=== PATIENT | female | born 1980 | race Caucasian/White ===

== ENCOUNTER 2017-12-04 05:28 | Inpatient (IN) | payer OTHER ==
[2017-12-04] MEDS ORDERED: ceFOXitin 2 GM IVPREMIX* 2 GM/50 ML BAG IVPB ONE (06:07)
[2017-12-04] MEDS ORDERED: Sodium Citrate/Citric Acid* 15 ML UDC PO ONE (06:07)
--- NOTE | 2017-12-04 06:40 | HP ---
General Information - General Information Maternal Age: 37 Grav: 1 Para: 0 SAB: 0 IEA: 0 Estimated Due Date: 12/13/17 Determined By: LMP Gestational Age in Weeks and Days: 38 Weeks and 5 Days Maternal Blood Type and Rh: O Positive - Results this Serology/RPR Result: Non-Reactive Rubella Result: Non-Immune HBsAg Result: Negative HIV Result: Negative GBS Culture Result: Negative Past Medical History Pertinent Past Medical History: Non-Contributory Past Medical History Comment: Depression/Anxiety--no meds at present Pertinent Past Surgical History: None Pertinent Family History: Non-Contributory - Antepartal Records Antepartal Records: Reviewed, Complicated by: - breech presentation, unsuccessful ECV. Age 37, normal NIPT Review of Systems Constitutional: Comfortable CV Complaint: No Respiratory: Shortness of Breath: No Gastrointestinal: No Nausea/Vomiting Genitourinary: Leaking Fluid Musculoskeletal: Contractions Neurological: No Headache, No Visual Changes Movement: Normal - Comments soft stool this am Exam Allergies/Adverse Reactions: Allergies No Known Allergies Allergy (Verified 12/04/17 06:04) Vital Signs 12/04/17 05:59 Temperature 98.2 F Pulse Rate 70 Respiratory 18 Rate Blood Pressure 142/92 (mmHg) Lab Values - Entire Visit: Laboratory Tests 12/04/17 05:44 Vag Amniotic Fld Detect Positive - Measurements Height: 4 ft 11 in Weight: 108 lb Weight in lbs: 108 Body Mass Index (BMI): 21.8 Pre- Weight: 84 lb Weight Gained This : 24 lbs and 0 ozs - Exam Breast: - - soft, no masses Extremities: No Edema Heart: Normal Rhythm/Heart Sounds HEENT: No Significant Findings Lungs: Clear Bilaterally Reflexes: DTR 2+ Thyroid: No Thyromegaly - Ultrasound/Biophysical Profile Ultrasound Status: Bedside Exam Ultrasound Findings: breech presentation, vtx in RUQ Targeted Exam Findings See L&D Outpatient Visit Provider Note for Findings: N/A Cervical Exam: 1cm Effacement: Thick Station: -1 Presenting Part: Breech Amniotic Fluid Evaluation: Positive ROM Plus EFM Findings - External Monitor Findings Baseline Heart Rate: 125 External Monitor Findings: Accelerations Present, No Pattern of Variable or Late Decelerations, Variability Moderate, Baseline Stable External Monitor Findings Comment: category 1 Contractions: Moderate, 45-90 Seconds Contraction Frequency: 6-7 minutes Assessment/Plan - Reason for Visit Reason for Visit: SROM, breech presentation at 38 w 5 d - Plan Plan: Expedite C/S Delivery - Date/Time of Admission Date of Admission: 12/04/17 Time of Admission: 06:10
[2017-12-04 06:53] LABS: ABS Basophils 0.1 10^3/ul (0-0.2); ABS Eosinophils 0.2 10^3/ul (0-0.6); ABS Lymphocytes 2.5 10^3/ul (1.0-4.8); ABS Monocytes 0.8 10^3/ul (0-0.8); ABS Neutrophils 8.8 10^3/ul (1.5-7.7); ABS Nucleated RBC 0.1 10^3/ul; Eosinophil % 1.7 % (0-6); Hematocrit 37 % (35-47); Hemoglobin 12.6 g/dl (12.0-16.0); Lymphocyte % 20.1 % (25-47); Mean Corpuscular HGB Conc 34 g/dl (31-36); Mean Corpuscular Hemoglobin 30 pg (27-31); Mean Corpuscular Volume 89 fL (80-97); Mean Platelet Volume 10.9 um3 (7.4-10.4); Nucleated Red Blood Cells % 0.4; Platelet Count 111 10^3/ul (150-450); Red Blood Count 4.15 10^6/ul (4.0-5.4); Red Cell Distribution Width 13 % (10.5-15); White Blood Count 12.4 10^3/ul (3.5-10.8)
[2017-12-04] MEDS ORDERED: Morphine PF AMP (0.5MG/ML)* 5 MG/10 ML AMP ONE (07:02)
[2017-12-04] MEDS ORDERED: fentaNYL* 50 MCG/ML 2 ML VIAL (100 MCG VIAL) ONE (07:02)
[2017-12-04] MEDS ORDERED: Midazolam* 1 MG/ML 5 ML VIAL (5 MG) ONE (07:02)
[2017-12-04] MEDS ORDERED: KETAMINE HCL* 50 MG/ML 10 ML VIAL ONE (07:02)
[2017-12-04 07:18] LABS: EGFR Non-African American 87.9 (>60)
[2017-12-04] MEDS ORDERED: Naloxone* 0.4 MG/ML 1 ML VIAL IV PRN ×2 (07:32→08:11)
[2017-12-04] MEDS ORDERED: fentaNYL* 50 MCG/ML 2 ML VIAL (100 MCG VIAL) IV PRN (07:32)
[2017-12-04 07:50] LABS: Uric Acid 8.2 mg/dL (2.3-6.6)
[2017-12-04] MEDS ORDERED: DiMENhydriNATE IV* 50 MG/ML VIAL IV PUSH PRN (08:11)
[2017-12-04] MEDS ORDERED: diPHENhydraMINE IV* 50 MG/ML 1 ml VIAL (BENADRYL) IV PRN (08:11)
[2017-12-04] MEDS ORDERED: Naloxone* 2 MG in NS 0.9% 250 ML* 250 ML IV PRN (08:11)
[2017-12-04] MEDS ORDERED: Nalbuphine* 20 MG/ML 1 ML VIAL IV PRN (08:11)
[2017-12-04] MEDS ORDERED: PROCHLORPERAZINE INJ 5 MG/ML 2 ML VIAL IV PRN (08:11)
[2017-12-04] MEDS ORDERED: oxyCODONE/Acetamin 5/325 MG* TAB PO PRN (08:11)
[2017-12-04] MEDS ORDERED: PROCHLORPERAZINE INJ 5 MG/ML 2 ML VIAL ONE (08:31)
[2017-12-04] MEDS ORDERED: Dexamethasone IV* 4 MG/ML 1 ML (4 MG) ONE (08:31)
[2017-12-04] MEDS ORDERED: Bupivacaine-MPF SPINAL* 7.5 MG/2 ML AMP ONE (08:31)
[2017-12-04] MEDS ORDERED: Scopolamine 1.5 mg* PATCH ONE (08:31)
[2017-12-04] MEDS ORDERED: EPHEDrine (Pressors)* 50 MG/ML VIAL ONE (08:31)
[2017-12-04] MEDS ORDERED: Phenylephrine IV* 40 MCG/ML 10 ML SYRINGE ONE (08:31)
[2017-12-04] MEDS ORDERED: OXYTOCIN* 10 UNITS/ML 1 ML VIAL ONE (08:32)
[2017-12-04] MEDS ORDERED: Zolpidem TAB* 5 MG PO PRN (08:50)
[2017-12-04] MEDS ORDERED: Witch Hazel PAD* JAR TOPICAL PRN (08:50)
[2017-12-04] MEDS ORDERED: Dibucaine 1% 28.35 GM TUBE PR PRN (08:50)
[2017-12-04] MEDS ORDERED: Glycerin ADULT SUPP PR PRN (08:50)
[2017-12-04] MEDS: Docusate CAP* 100 MG PO SCH ×3 (10:26→20:47)
[2017-12-04] MEDS ORDERED: Ibuprofen TAB* 600 MG ONE (12:37)
[2017-12-04] MEDS ORDERED: Nalbuphine* 20 MG/ML 1 ML VIAL ONE (12:38)
[2017-12-04] MEDS: Simethicone TAB* 80 MG TAB.CHEW PO SCH ×3 (12:40→20:47)
[2017-12-04] MEDS: Ibuprofen TAB* 600 MG PO PRN (12:41)
--- NOTE | 2017-12-04 22:28 | OP ---
DATE OF OPERATION: 12/04/17 - ROOM #116 DATE OF : 84 SURGEON: Vamsi Souza MD TAPE CUTTING MACHINE OPERATOR: Lorraine Pearce MD PRE-OP DIAGNOSES: Intrauterine at 38 weeks, breech presentation in labor with spontaneous rupture of membranes. POST-OP DIAGNOSES: Intrauterine at 38 weeks, breech presentation in labor with spontaneous rupture of membranes. OPERATIVE PROCEDURE: Primary low transverse section. ESTIMATED BLOOD LOSS: 500 cc. URINE OUTPUT: 200 cc. FLUIDS: She received 3 L of IV crystalloid fluid. FINDINGS: Delivery of a viable male infant in jason breech presentation via section, breech extraction. Amniotic fluid was noted to be clear. There was a nuchal cord x1. The baby weighed 5 pounds and 3 ounces. Apgars were 9 and 9. The uterus, adnexa, bowel, and bladder were all within normal limits and there were no complications. DESCRIPTION OF PROCEDURE: The patient was taken to the operating room, where she was identified, placed on the operating table, where a spinal anesthetic was obtained without difficulty. She was then placed in the supine position with a leftward tilt, prepped and draped in a normal sterile fashion. A Pfannenstiel skin incision was made with a knife and carried through to the underlying layer of fascia. The fascia was then nicked in the midline and extended laterally with curved Crum scissors. The fascia was then grasped superiorly and inferiorly with Cornell clamps and dissected off sharply from the rectus muscle. The rectus muscle was then in the midline bluntly. The peritoneum was identified, grasped with pickups, and entered sharply with Metzenbaum scissors, and extended superiorly and inferiorly sharply. A bladder blade was then inserted into the patient's abdomen. A bladder flap was created using Metzenbaum scissors over which the bladder blade was then reinserted. A low-transverse incision was then made with a knife and incision was then extended laterally with bandage scissors. The 's bottom was grasped and delivered as breech extraction. The cord was clamped and cut, the infant was handed off to awaiting row boss hoeing. Cord bloods were obtained. The placenta was removed manually. The uterus was then exteriorized, cleared of all clot and debris using moist laparotomy sponges. The uterine incision was then closed using 0 Polysorb suture in a running locked fashion with a second imbricating layer of 0 Polysorb suture with good hemostasis was noted. The patient's abdomen was then irrigated with normal saline. The saline was then suctioned. The uterus was then returned into the patient's abdomen. The gutters were then cleared of all clots and debris using moist laparotomy sponges. All sponges were removed from the patient's abdomen. The peritoneum was then closed using 3-0 Polysorb suture in a running fashion. The fascia was then closed using 0 Polysorb suture in a running fashion and the skin was closed with 4-0 Monocryl subcuticular stitch. The patient tolerated the procedure well. Sponge, lap, needle counts were correct x2. She was then transferred to the recovery room area in stable condition. [id number]/[facility] #: [id number] SEKOU
[2017-12-05] MEDS ORDERED: oxyCODONE/Acetamin 5/325 MG* TAB PO PRN (00:11)
[2017-12-05] MEDS ORDERED: Acetaminophen TAB* 325 MG PO PRN (00:11)
[2017-12-05] MEDS: Ibuprofen TAB* 600 MG PO PRN ×4 (04:02→23:36)
[2017-12-05] MEDS: oxyCODONE/Acetamin 5/325 MG* TAB PO PRN ×4 (05:43→23:36)
[2017-12-05 07:17] LABS: ABS Basophils 0.1 10^3/ul (0-0.2); ABS Eosinophils 0.1 10^3/ul (0-0.6); ABS Lymphocytes 3.2 10^3/ul (1.0-4.8); ABS Monocytes 1.3 10^3/ul (0-0.8); ABS Nucleated RBC 0 10^3/ul; Eosinophil % 0.3 % (0-6); Hematocrit 33 % (35-47); Hemoglobin 11.4 g/dl (12.0-16.0); Lymphocyte % 14.8 % (25-47); Mean Corpuscular HGB Conc 34 g/dl (31-36); Mean Corpuscular Hemoglobin 30 pg (27-31); Mean Corpuscular Volume 88 fL (80-97); Mean Platelet Volume 10.4 um3 (7.4-10.4); Nucleated Red Blood Cells % 0.1; Platelet Count 115 10^3/ul (150-450); Red Blood Count 3.76 10^6/ul (4.0-5.4); Red Cell Distribution Width 13 % (10.5-15); White Blood Count 21.6 10^3/ul (3.5-10.8)
[2017-12-05] MEDS: Ferrous Gluconate TAB* 324 MG TAB PO SCH (09:43)
[2017-12-05] MEDS: Docusate CAP* 100 MG PO SCH ×3 (09:51→20:35)
[2017-12-05] MEDS: Simethicone TAB* 80 MG TAB.CHEW PO SCH ×4 (09:51→20:35)
[2017-12-05] MEDS ORDERED: Measles, Mumps,Rubella VACC* 0.5 ML/VIAL SUBCUT ONE (17:01)
--- NOTE | 2017-12-05 21:16 | PTEDU ---
Patient Name: CEM CRUZ CEM CRUZ selected video: Never Ever Shake a Baby to view on 12/05/2017 at 9:15:54 PM from [facility] [id number]
[2017-12-06] MEDS: oxyCODONE/Acetamin 5/325 MG* TAB PO PRN ×4 (05:36→19:58)
[2017-12-06] MEDS: Ibuprofen TAB* 600 MG PO PRN ×3 (05:36→18:07)
[2017-12-06] MEDS: Docusate CAP* 100 MG PO SCH ×3 (08:54→19:58)
[2017-12-06] MEDS: Simethicone TAB* 80 MG TAB.CHEW PO SCH ×4 (08:54→19:58)
[2017-12-07] MEDS: oxyCODONE/Acetamin 5/325 MG* TAB PO PRN ×3 (00:05→12:04)
[2017-12-07] MEDS: Ibuprofen TAB* 600 MG PO PRN ×3 (00:05→12:04)
[2017-12-07] MEDS: Ferrous Gluconate TAB* 324 MG TAB PO SCH ×2 (07:08→07:10)
[2017-12-07] MEDS ORDERED: Scopolamine PATCH Remove* 1 NOTE MISC PATCH OFF ONE (07:32)
[2017-12-07 08:19] VITALS: BP 146/83
[2017-12-07] MEDS: Simethicone TAB* 80 MG TAB.CHEW PO SCH ×2 (09:00→12:04)
[2017-12-07] MEDS: Docusate CAP* 100 MG PO SCH (09:00)
== END 2017-12-07 15:03 | disposition home or self-care (01) | DRG 766 ==
LOC: MCHOBOUT 05:28 → MCHOB 06:10
PROVIDERS: ADMIT Obstetrics & Gynecology; ATTEND Obstetrics & Gynecology
PROC: 10D00Z1 Extraction of Products of Conception, Low, Open Approach (ICD-10-PCS; principal; 2017-12-07)
PROC: 4A1HX4Z Monitoring of Products of Conception, Cardiac Electrical Activity, External Approach (ICD-10-PCS; 2017-12-07)
DX: O32.1XX0 Maternal care for breech presentation, not applicable or unspecified (principal); O14.24 HELLP syndrome, complicating childbirth; O69.81X0 Labor and delivery complicated by cord around neck, without compression, not applicable or unspecified; Z37.0 Single live birth; Z3A.38 38 weeks gestation of pregnancy
CPT/HCPCS: 36415; 80053; 84112; 84550; 85025; 86850; 86900; 86901; 90707; 99460; 99464; A9270-GY; J0694; J0780; J1100; J2250; J2300; J2590; J3010

== ENCOUNTER 2018-06-23 11:09 | Emergency (ER) | payer OTHER ==
[2018-06-23 11:57] LABS: ABS Basophils 0 10^3/ul (0-0.2); ABS Eosinophils 0.2 10^3/ul (0-0.6); ABS Lymphocytes 2.4 10^3/ul (1.0-4.8); ABS Monocytes 0.5 10^3/ul (0-0.8); ABS Neutrophils 3.4 10^3/ul (1.5-7.7); ABS Nucleated RBC 0 10^3/ul; Eosinophil % 3.1 %; Hematocrit 41 % (35-47); Hemoglobin 13.9 g/dl (12.0-16.0); Mean Corpuscular HGB Conc 34 g/dl (31-36); Mean Corpuscular Hemoglobin 30 pg (27-31); Mean Corpuscular Volume 88 fL (80-97); Mean Platelet Volume 9.1 fL (7.4-10.4); Nucleated Red Blood Cells % 0; Platelet Count 265 10^3/ul (150-450); Red Blood Count 4.68 10^6/ul (4.00-5.40); Red Cell Distribution Width 13 % (10.5-15); White Blood Count 6.5 10^3/ul (3.5-10.8)
--- NOTE | 2018-06-23 12:58 | ED ---
Complex/Multi-Sys Presentation - HPI Summary HPI Summary: Patient presents with concerns for rapid weight loss, unintentional. She is also feeling "manic" and an "urgency to complete tasks before she dies". She denies visual or auditory hallucinations however admits she's seeing "signs giving her messages" that are happening rapidly. She denies chest pain, shortness of breath, abdominal pain, nausea, vomiting, diarrhea, headache, change of vision, sweating. She reports she is eating and consuming 8-16 ounces of caffeine a day plus dark chocolate. She denies other stimulant use including but not limited to elicit drugs, alcohol, [id number] location such as Sudafed. Feels she is consuming adequate calories and agrees she 's been eating "normally". She was diagnosed with thyrotoxicosis at 5 months. She is at about 6 months post now. Was started on levothyroxine 50mcg about one month ago. She reports she had follow-up labs this past Monday which with were within normal limits. She reports she felt good that day and does not feel good today. Follows with Dr. Delgadillo through endocrinology for her thryoid condition. No imaging of thyroid nor brain at this time. She had insomnia last night and feels she has a lot of energy. She's had an another episode of this increased energy in the past since delivering her child and had insomnia for 4 nights consecutively. She is worried this is going to happen again. She also reports she noticed sx starting about 2 months post and has seen a pattern of this happening "mid cycle" each month however she has not had a period since delivering. She is back to work which was initially incredibly stressful however since things have slowed down, she feels less pressure there. She feels safe at home nad no SI, HI. She has a history of panic attacks in 2007 which improved with counseling. She reports she had some self revelations then but no significant history of trauma. She also denies history of medication to treat her anxiety. She was using marijuana back in 2007 which made her thoughts worse and has not used since. No current counseling. - History Of Current Complaint Chief Complaint: EDGeneral Time Seen by Provider: 06/23/18 11:37 Hx Obtained From: Patient, Family/Control Officer Manager - , - Allergies/Home Medications Allergies/Adverse Reactions: Allergies Allergy/AdvReac Type Severity Reaction Status Date / Time No Known Allergies Allergy Verified 12/04/17 06:04 PMH/Surg Hx/FS Hx/Imm Hx Previously Healthy: Yes Endocrine/Hematology History: Reports: Hx Thyroid Disease - post thyrotoxicosis Denies: Hx Anticoagulant Therapy, Hx Diabetes, Hx Anemia Neurological History: Denies: Hx Headaches Psychiatric History: Reports: Hx Anxiety - panic attacks in 2007 - better w/ counseling, Hx Depression Denies: Hx Eating Disorder, Hx Suicide Attempt Infectious Disease History: No Infectious Disease History: Denies: Traveled Outside the [place] in Last 30 Days - Family History Known Family History: Positive: None - Social History 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 Lives: With Family Alcohol Use: None Hx Substance Use: No - none currently Substance Use Type: Reports: None, Marijuana - used marijuna in 2007 to deal w/ anxiety, Other - 8-16 oz coffee per day plus dark chocolate Substance Use Comment - Amount & Last Used: patient states addiction in 2008 Hx Tobacco Use: No Smoking Status (MU): Never Smoked Tobacco Review of Systems Constitutional: Negative Negative: Fever, Chills, Fatigue Eyes: Negative, Other - no visual changes Negative: Photophobia, Blurred Vision, Diplopia, Drainage, Erythema ENT: Negative Negative: Sore Throat - no difficulty swallowing, no throat fullness Cardiovascular: Negative Respiratory: Negative Gastrointestinal: Negative Genitourinary: Negative Musculoskeletal: Negative Skin: Negative Neurological: Negative Negative: Headache Psychological: Other - increased energy, racing thoughts, difficulty sleeping All Other Systems Reviewed And Are Negative: Yes Physical Exam Triage Information Reviewed: Yes Vital Signs On Initial Exam: Initial Vitals Temp Pulse Resp BP Pulse Ox 99.4 F 92 12 123/86 100 06/23/18 11:10 06/23/18 11:10 06/23/18 11:10 06/23/18 11:10 06/23/18 11:10 Vital Signs Reviewed: Yes Appearance: Positive: Well-Appearing, No Pain Distress, Thin Skin: Positive: Warm, Skin Color Reflects Adequate Perfusion, Dry Head/Face: Positive: Normal Head/Face Inspection Eyes: Positive: Normal, EOMI, [place], Conjunctiva Clear, Other: - no exophthalmos ENT: Positive: Normal ENT inspection - no periorbital edema, Hearing grossly normal, Pharynx normal - mucosa moist Neck: Positive: Supple, Nontender - no gross thyromegaly Respiratory/Lung Sounds: Positive: Clear to Auscultation, Breath Sounds Present Cardiovascular: Positive: Normal, RRR, S1, S2. Negative: Murmur, Rub, Leg Edema Left, Leg Edema Right Abdomen Description: Positive: Nontender, No Organomegaly, Soft Bowel Sounds: Positive: Present Musculoskeletal: Positive: Normal, Strength/ROM Intact Neurological: Positive: Normal, Sensory/Motor Intact, Alert, Oriented to Person Place, Time, CN Intact II-III, Reflexes Intact - no hyper-reflexia Psychiatric: Positive: Other - anxious but polite, pleasant and with clear and organized thoughts - she is tearful at times when trying to express what she's been thinking and how she's feeling - denies SI/HI; appears to have appropriate insight - appears comfortable with , mom and a male friend who is also present throughout the visit to offer support - she appears comfortable with others as well as when alone Diagnostics - Vital Signs Vital Signs Temp Pulse Resp BP Pulse Ox 06/23/18 11:10 99.4 F 92 12 123/86 100 - Laboratory Lab Results: Lab Results 06/23/18 06/23/18 Range/Units 11:45 11:45 WBC 6.5 (3.5-10.8) 10^3/ul RBC 4.68 (4.00-5.40) 10^6/ul Hgb 13.9 (12.0-16.0) g/dl Hct 41 (35-47) % MCV 88 (80-97) fL MCH 30 (27-31) pg MCHC 34 (31-36) g/dl RDW 13 (10.5-15) % Plt Count 265 (150-450) 10^3/ul MPV 9.1 (7.4-10.4) fL Neut % (Auto) 52.0 % Lymph % (Auto) 37.0 % [place] % (Auto) 7.3 % Eos % (Auto) 3.1 % Baso % (Auto) 0.6 % Absolute Neuts (auto) 3.4 (1.5-7.7) 10^3/ul Absolute Lymphs (auto) 2.4 (1.0-4.8) 10^3/ul Absolute Monos (auto) 0.5 (0-0.8) 10^3/ul Absolute Eos (auto) 0.2 (0-0.6) 10^3/ul Absolute Basos (auto) 0 (0-0.2) 10^3/ul Absolute Nucleated RBC 0 10^3/ul Nucleated RBC % 0 TSH 4.36 (0.34-5.60) mcIU/mL Free T4 Pending Beta HCG, Quant < 0.60 mIU/mL Result Diagrams: 06/23/18 11:45 06/23/18 11:45 Lab Statement: Any lab studies that have been ordered have been reviewed, and results considered in the medical decision making process. Re-Evaluation - Re-Evaluation First Eval Change: Improved - pt reports she's actually feeling a little better since here w/o stimulation or distraction of having to focus of caring for a child, household activities, etc. Feels the quiet has been helpful. Complex Multi-Symp Course/Dx Course Of Treatment: Anxiety with increased energy - definitive cause was not identified today however she was dx'd w/ post thyrotoxicosis - followed by rocío and has been on synthroid 50mcg. Thyroid labs appear to be normal as do her vital signs. And although she presents w/ racing thoughts, she appears organized and in control. Thoughts are also not abnormal for her but as she reports more intense and intrusive today. Unsure of why shes having weight loss but advised balanced diet with increased calories to reduce risk of further loss - labs are WNL today. Needs close f/u w/ PCP for monitoring if continues to prevent catabolism. She and family have expressed she is not a harm to herself or others and although offered mental health evaluation multiple times, pt and family feel safe to try PRN anxiety medicaton voer the next couple of days and close f/u w/ PCP and endo on Monday. They are aware of danger s/sx of when to return to the ED as well. 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 and may benefit from counseling. She is open to this as she's been in the past adn it was helpful. Also reviewed importance of avoiding stimulants in the meantime as to not exacerbate her sx. SHe and family agree w/ plan. Discussed w/ Dr. Gupta. - Diagnoses Provider Diagnoses: Anxiety, Weight loss, unintentional Discharge - Sign-Out/Discharge Documenting (check all that apply): Patient Departure - Discharge Plan Condition: Stable Disposition: HOME Prescriptions: hydrOXYzine HCL TAB* [Atarax 10 MG TAB*] 20 mg PO QID PRN #16 tab PRN Reason: Anxiety Patient Education Materials: Anxiety (ED) Referrals: Silva Fontana NP [Primary Care Provider] - Additional Instructions: The definitive cause of your symptoms was not identified today however we have agreed to treat the anxiety component of your symptoms with a medication called hydroxyzine, which should aid in reducing anxiety and aid in sleep. Do not take while operating machinery. Also, avoid all stimulants in the meantime (ie. alcohol, caffeine, chocolate, nicotine, over the counter cold meds such as Sudafed, Afrin, etc.) Stay hydrated and practice relaxation techniques. Follow-up with PCP and endocrinology on Monday - call to schedule appointment. *If you feel worse in the meantime, develop chest pain, shortness of breath, thoughts of harming yourself or others, return to the ED - Billing Disposition and Condition Condition: STABLE Disposition: Home
[2018-06-23 14:33] LABS: Urine Appearance Clear; Urine Blood Negative (Negative); Urine Color Colorless; Urine Ketones Negative (Negative); Urine Protein Negative (Negative); Urine Specific Gravity 1.002 (1.010-1.030); Urine Urobilinogen Negative (Negative)
[2018-06-23 17:23] VITALS: BP 122/74
== END 2018-06-23 17:54 | disposition home or self-care (01) ==
LOC: ED 11:09
DX: F41.9 Anxiety disorder, unspecified (principal); R63.4 Abnormal weight loss
CPT/HCPCS: 36415; 80053; 80307; 80320; 80329; 81003; 84439; 84443; 84702; 85025; 93005; 99282; G0480